=== PATIENT | female | born 1965 | race African-American/Black ===

== ENCOUNTER 2017-05-10 21:54 | Emergency (ER) | payer MEDICAID, OTHER ==
[~2017-05-10] VITALS: Ht 167.6 cm; Wt 73.0 kg
[2017-05-10 23:33] LABS: BASOPHILS % 0.4 % (0.0-2.0); EOSINOPHILS % 1.7 % (0.0-5.0); HEMATOCRIT. 41.3 % (36.0-48.0); HEMOGLOBIN. 14.1 g/dL (12.0-16.0); LYMPHOCYTES % 48.6 % (20.0-50.0); MEAN CORPUSCULAR HEMOGLOBIN 32.7 pg (28.0-32.0); MEAN CORPUSCULAR VOLUME 95.8 fL (81.0-99.0); MEAN PLATELET VOLUME 9.4 fl (7.4-10.4); NEUTROPHILS % 39.3 % (40.0-76.0); PLATELET 165 x1000/uL (130-400); RED BLOOD CELL COUNT 4.31 mill/uL (4.2-5.4); RED CELL DISTRIBUTION WIDTH 12.7 % (11.6-14.6)
[2017-05-10 23:43] LABS: CARBON DIOXIDE 25 mEq/L (21-32); CHLORIDE 107 mEq/L (98-107); ETHANOL BLOOD < 10 mg/dL
[2017-05-11 06:56] LABS: *AMPHETAMINES SCREEN URINE PRESUMTIVE POSITIVE (NEGATIVE); *BARBITURATES SCREEN URINE NEGATIVE (NEGATIVE); *BENZODIAZEPINES SCREEN URINE NEGATIVE (NEGATIVE); *COCAINE SCREEN URINE PRESUMTIVE POSITIVE (NEGATIVE); CANNABINOID URINE SCREEN NEGATIVE (NEGATIVE); METHADONE URINE SCREEN NEGATIVE (NEGATIVE); OPIATES URINE SCREEN NEGATIVE (NEGATIVE); PHENCYCLIDINE URINE SCREEN NEGATIVE (NEGATIVE)
[2017-05-11 12:42] VITALS: BP 110/60
== END 2017-05-11 12:54 | disposition home or self-care (01) ==
LOC: ER 22:54
DX: F32.9 Major depressive disorder, single episode, unspecified (principal); R45.851 Suicidal ideations; F43.21 Adjustment disorder with depressed mood; F31.9 Bipolar disorder, unspecified; F17.200 Nicotine dependence, unspecified, uncomplicated; F14.90 Cocaine use, unspecified, uncomplicated
CPT/HCPCS: 36415; 80053; 80305; 80307; 80329; 85025; 93005; 99285; G0482; Z7610

== ENCOUNTER 2018-10-05 02:25 | Inpatient (IN) | payer OTHER ==
[~2018-10-05] VITALS: Ht 165.1 cm; Wt 83.0 kg
[2018-10-05] MEDS ORDERED: ASPIRIN 81MG TABLET PO ONE (03:00)
[2018-10-05 03:16] LABS: CHLORIDE 103 mEq/L (98-107)
[2018-10-05 03:20] LABS: ETHANOL BLOOD < 10 mg/dL; INR 1.1; PARTIAL THROMBOPLASTIN TIME 35.4 sec (23.4-31.0)
[2018-10-05 03:21] LABS: BASOPHILS % 0.9 % (0.0-2.0); EOSINOPHILS % 1.9 % (0.0-5.0); HEMATOCRIT. 40.8 % (36.0-48.0); HEMOGLOBIN. 14.2 g/dL (12.0-16.0); LYMPHOCYTES % 41.7 % (20.0-50.0); MEAN CORPUSCULAR HEMOGLOBIN 33.3 pg (28.0-32.0); MEAN CORPUSCULAR VOLUME 96.2 fL (81.0-99.0); MEAN PLATELET VOLUME 10.1 fl (7.4-10.4); MONOCYTES % 14.1 % (2.0-8.0); NEUTROPHILS % 41.4 % (40.0-76.0); PLATELET 298 x1000/uL (130-400); RED BLOOD CELL COUNT 4.25 mill/uL (4.2-5.4); RED CELL DISTRIBUTION WIDTH 13.3 % (11.6-14.6)
[2018-10-05] MEDS: NITROGLYCERIN 0.4MG TABLET SL SL PRN ×4 (03:40→15:14)
[2018-10-05] MEDS ORDERED: ENOXAPARIN 100MG/ML SYR SUBCUT NR (04:30)
[2018-10-05 06:30] VITALS: BP 109/58
[2018-10-05 08:00] VITALS: BP 110/68
[2018-10-05 12:00] VITALS: BP 105/59
[2018-10-05] MEDS ORDERED: IPRATROPIUM/ALBUTEROL 0.5-3(2.5)MG/3ML NEB INH PRN (14:00)
[2018-10-05] MEDS ORDERED: NITROGLYCERIN 0.4MG TABLET SL SL PRN (14:00)
[2018-10-05] MEDS ORDERED: DOCUSATE SODIUM 100MG CAPSULE PO PRN (14:00)
[2018-10-05] MEDS ORDERED: CLONIDINE 0.1MG TABLET PO PRN (14:00)
[2018-10-05] MEDS ORDERED: ONDANSETRON HCL 4MG/2ML INJ IV PRN (14:00)
[2018-10-05 16:00] VITALS: BP 109/65
[2018-10-05] MEDS: HYDROCODONE/APAP 7.5/325MG 1 TAB TABLET PO PRN (16:46)
[2018-10-05 17:18] LABS: HEPATITIS B SURFACE ANTIGEN NEGATIVE
[2018-10-05 17:47] LABS: HEPATITIS A AB IGM NEGATIVE (NEGATIVE)
[2018-10-05 20:00] VITALS: BP 109/62
[2018-10-05] MEDS: DIPHENHYDRAMINE 50MG/ML VIAL IV PRN (23:25)
[2018-10-06] VITALS (7 sets, daily range): BP systolic 104–120; BP diastolic 53–78
[2018-10-06 05:34] LABS: *AMPHETAMINES SCREEN URINE PRESUMTIVE POSITIVE (NEGATIVE)
[2018-10-06 05:35] LABS: *BARBITURATES SCREEN URINE NEGATIVE (NEGATIVE); *BENZODIAZEPINES SCREEN URINE NEGATIVE (NEGATIVE); *COCAINE SCREEN URINE PRESUMTIVE POSITIVE (NEGATIVE); METHADONE URINE SCREEN NEGATIVE (NEGATIVE); OPIATES URINE SCREEN PRESUMTIVE POSITIVE (NEGATIVE); PHENCYCLIDINE URINE SCREEN NEGATIVE (NEGATIVE)
[2018-10-06 05:36] LABS: CANNABINOID URINE SCREEN NEGATIVE (NEGATIVE)
[2018-10-06 06:31] LABS: BASOPHILS % 0.9 % (0.0-2.0); EOSINOPHILS % 1.9 % (0.0-5.0); HEMATOCRIT. 40.3 % (36.0-48.0); HEMOGLOBIN. 13.9 g/dL (12.0-16.0); MEAN CORPUSCULAR HEMOGLOBIN 33.6 pg (28.0-32.0); MEAN CORPUSCULAR VOLUME 97.4 fL (81.0-99.0); MEAN PLATELET VOLUME 10.4 fl (7.4-10.4); NEUTROPHILS % 40.2 % (40.0-76.0); PLATELET 292 x1000/uL (130-400); RED BLOOD CELL COUNT 4.13 mill/uL (4.2-5.4); RED CELL DISTRIBUTION WIDTH 13.1 % (11.6-14.6)
[2018-10-06 06:43] LABS: CHLORIDE 104 mEq/L (98-107)
[2018-10-06 06:51] LABS: HDL CHOLESTEROL 51 mg/dL (40-59)
[2018-10-06 06:52] LABS: LDL CHOLESTEROL 82 mg/dL (5-100)
[2018-10-06 06:54] LABS: T4 FREE 1.21 ng/dL (0.76-1.46)
[2018-10-06] MEDS: HYDROCODONE/APAP 7.5/325MG 1 TAB TABLET PO PRN (11:21)
[2018-10-06] MEDS: DILTIAZEM HCL 30MG TABLET PO SCH (21:39)
[2018-10-06] MEDS: DIPHENHYDRAMINE 50MG/ML VIAL IV PRN (22:24)
[2018-10-07 05:09] VITALS: BP 129/66
[2018-10-07] MEDS: DILTIAZEM HCL 30MG TABLET PO SCH ×3 (06:22→22:00)
[2018-10-07 08:00] VITALS: BP 105/64
[2018-10-07 12:00] VITALS: BP 114/80
[2018-10-07 16:00] VITALS: BP 118/73
[2018-10-07] MEDS: DIPHENHYDRAMINE 50MG/ML VIAL IV PRN (18:33)
[2018-10-07 20:00] VITALS: BP 106/70
[2018-10-08 03:55] VITALS: BP 95/57
[2018-10-08] MEDS: DILTIAZEM HCL 30MG TABLET PO SCH ×3 (06:00→21:01)
[2018-10-08 08:00] VITALS: BP 117/72
[2018-10-08] MEDS: DIPHENHYDRAMINE 50MG/ML VIAL IV PRN ×2 (08:18→18:59)
[2018-10-08 12:00] VITALS: BP 108/66
[2018-10-08 16:00] VITALS: BP 114/67
[2018-10-08 20:00] VITALS: BP 128/81
[2018-10-09] VITALS (7 sets, daily range): BP systolic 94–112; BP diastolic 59–79
[2018-10-09] MEDS: DIPHENHYDRAMINE 50MG/ML VIAL IV PRN ×3 (04:13→19:59)
[2018-10-09] MEDS: DILTIAZEM HCL 30MG TABLET PO SCH ×3 (05:42→21:27)
[2018-10-09] MEDS: ACETAMINOPHEN 325MG TABLET PO PRN (08:53)
[2018-10-09] MEDS: HYDROCODONE/APAP 7.5/325MG 1 TAB TABLET PO PRN (19:11)
[2018-10-09 20:01] LABS: HCG SCREEN NEGATIVE
[2018-10-10] VITALS: BP 93/60
[2018-10-10 02:03] LABS: CLARITY URINE CLEAR (CLEAR); COLOR URINE YELLOW (YELLOW); KETONES URINE NEGATIVE (NEGATIVE); LEUKOCYTE ESTERASE URINE 2+ (NEGATIVE); NITRITE URINE NEGATIVE (NEGATIVE); OCCULT BLOOD URINE NEGATIVE (NEGATIVE); PROTEIN URINE NEGATIVE (NEGATIVE); SPECIFIC GRAVITY URINE 1.025 (1.005-1.030)
[2018-10-10 04:00] VITALS: BP 105/66
[2018-10-10] MEDS: DILTIAZEM HCL 30MG TABLET PO SCH ×3 (05:19→22:00)
[2018-10-10] MEDS: DIPHENHYDRAMINE 50MG/ML VIAL IV PRN ×2 (06:34→16:42)
[2018-10-10 07:47] VITALS: BP 110/74
[2018-10-10] MEDS: HYDROCODONE/APAP 7.5/325MG 1 TAB TABLET PO PRN (09:35)
[2018-10-10 12:00] VITALS: BP 113/83
[2018-10-10 16:00] VITALS: BP 103/66
[2018-10-10 20:00] VITALS: BP 111/79
[2018-10-11] VITALS: BP 108/67
[2018-10-11] MEDS: DIPHENHYDRAMINE 50MG/ML VIAL IV PRN ×3 (01:47→19:40)
[2018-10-11 04:00] VITALS: BP 93/62
[2018-10-11] MEDS: DILTIAZEM HCL 30MG TABLET PO SCH ×3 (05:04→22:00)
[2018-10-11 08:00] VITALS: BP 107/64
[2018-10-11 16:00] VITALS: BP 96/54
[2018-10-11 20:00] VITALS: BP 101/58
[2018-10-12] VITALS (7 sets, daily range): BP systolic 93–113; BP diastolic 52–79
[2018-10-12] MEDS: ACETAMINOPHEN 325MG TABLET PO PRN ×2 (03:04→16:29)
[2018-10-12] MEDS: DIPHENHYDRAMINE 50MG/ML VIAL IV PRN ×2 (05:23→14:36)
[2018-10-12] MEDS: DILTIAZEM HCL 30MG TABLET PO SCH ×3 (05:25→21:25)
[2018-10-12] MEDS: MAGNESIUM/ALUMINUM HYDROXIDE/SIMETHICONE 30ML UDC PO PRN (10:54)
[2018-10-13] VITALS (7 sets, daily range): BP systolic 95–111; BP diastolic 54–71
[2018-10-13] MEDS: DILTIAZEM HCL 30MG TABLET PO SCH ×3 (05:15→22:00)
[2018-10-13] MEDS: MAGNESIUM/ALUMINUM HYDROXIDE/SIMETHICONE 30ML UDC PO PRN (05:39)
[2018-10-13] MEDS: DIPHENHYDRAMINE 50MG/ML VIAL IV PRN ×3 (08:52→18:07)
[2018-10-13] MEDS: ACETAMINOPHEN 325MG TABLET PO PRN (15:15)
[2018-10-14] VITALS (7 sets, daily range): BP systolic 95–111; BP diastolic 50–73
[2018-10-14] MEDS: DIPHENHYDRAMINE 50MG/ML VIAL IV PRN ×3 (04:58→21:24)
[2018-10-14] MEDS: MAGNESIUM/ALUMINUM HYDROXIDE/SIMETHICONE 30ML UDC PO PRN (05:59)
[2018-10-14] MEDS: DILTIAZEM HCL 30MG TABLET PO SCH ×3 (06:00→21:30)
[2018-10-15 04:48] VITALS: BP 97/54
[2018-10-15] MEDS: DILTIAZEM HCL 30MG TABLET PO SCH ×2 (05:55→14:00)
[2018-10-15] MEDS: MAGNESIUM/ALUMINUM HYDROXIDE/SIMETHICONE 30ML UDC PO PRN (06:16)
[2018-10-15] MEDS: DIPHENHYDRAMINE 50MG/ML VIAL IV PRN (06:20)
[2018-10-15 10:39] VITALS: BP 97/52
== END 2018-10-15 16:45 | DRG 816 ==
LOC: ER 02:25 → 5WST 04:19 → EDBEDREQ 04:24 → EDBEDREQTM 04:24 → ENRESERV 04:54 → 5WST 12:29
PROVIDERS: ADMIT Internal Medicine; ATTEND Internal Medicine
DX: T40.5X1A Poisoning by cocaine, accidental (unintentional), initial encounter (principal); R45.851 Suicidal ideations; K70.30 Alcoholic cirrhosis of liver without ascites; I25.110 Atherosclerotic heart disease of native coronary artery with unstable angina pectoris; F14.988 Cocaine use, unspecified with other cocaine-induced disorder; F15.988 Other stimulant use, unspecified with other stimulant-induced disorder; F17.210 Nicotine dependence, cigarettes, uncomplicated; I10 Essential (primary) hypertension; Z72.89 Other problems related to lifestyle; Y92.89 Other specified places as the place of occurrence of the external cause
CPT/HCPCS: 36415; 71045; 76700; 80061; 80305; 82553; 83880; 84439; 84443; 84481; 84484; 84703; 86705; 86709; 86803; 87340; 93005; 93306; 93970; 94640; 96372; 99285; C1893; G0482; J1200; J1650; J7620

== ENCOUNTER 2021-03-27 08:40 | Emergency (ER) | payer OTHER ==
[~2021-03-27] VITALS: Ht 170.2 cm; Wt 113.0 kg
[2021-03-27] MEDS ORDERED: MORPHINE SULFATE 4 MG/ML CPJ (NOT FOR IM USE) IV ONE (09:15)
[2021-03-27 09:35] LABS: BASOPHILS % 0.6 % (0.0-2.0); EOSINOPHILS % 0.3 % (0.0-5.0); HEMATOCRIT. 44.1 % (36.0-48.0); HEMOGLOBIN. 15.2 g/dL (12.0-16.0); MEAN CORPUSCULAR HEMOGLOBIN 30.9 pg (28.0-32.0); MEAN CORPUSCULAR VOLUME 89.7 fL (81.0-99.0); MEAN PLATELET VOLUME 8.7 fl (7.4-10.4); MONOCYTES % 10.8 % (2.0-8.0); NEUTROPHILS % 68.3 % (40.0-76.0); PLATELET 287 x1000/uL (130-400); RED BLOOD CELL COUNT 4.92 mill/uL (4.2-5.4); RED CELL DISTRIBUTION WIDTH 13.1 % (11.6-14.6)
[2021-03-27 09:40] LABS: CHLORIDE 99 mEq/L (98-107)
[2021-03-27 15:39] VITALS: BP 113/69
== END 2021-03-27 15:41 | disposition short-term general hospital (02) ==
LOC: ER 08:40
DX: R07.89 Other chest pain (principal); R06.02 Shortness of breath; Z20.822 Contact with and (suspected) exposure to COVID-19; J45.909 Unspecified asthma, uncomplicated; I10 Essential (primary) hypertension
CPT/HCPCS: 36415; 71045; 80053; 83880; 84484; 85025; 93005; 96374; 99285; C9803; J2270; U0003; U0005

== ENCOUNTER 2021-09-07 06:31 | Emergency (ER) | payer OTHER ==
[~2021-09-07] VITALS: Ht 165.1 cm; Wt 73.0 kg
[2021-09-07] MEDS ORDERED: MORPHINE SULFATE 4 MG/ML CPJ (NOT FOR IM USE) IV STA (07:03)
[2021-09-07 11:19] LABS: BASOPHILS % 1.1 % (0.0-2.0); EOSINOPHILS % 3.4 % (0.0-5.0); HEMATOCRIT. 39.3 % (36.0-48.0); HEMOGLOBIN. 13.6 g/dL (12.0-16.0); LYMPHOCYTES % 44.8 % (20.0-50.0); MEAN CORPUSCULAR VOLUME 92.5 fL (81.0-99.0); MEAN PLATELET VOLUME 9.2 fl (7.4-10.4); MONOCYTES % 10.6 % (2.0-8.0); NEUTROPHILS % 40.1 % (40.0-76.0); PLATELET 247 x1000/uL (130-400); RED BLOOD CELL COUNT 4.25 mill/uL (4.2-5.4); RED CELL DISTRIBUTION WIDTH 13.5 % (11.6-14.6)
[2021-09-07 11:28] LABS: CHLORIDE 107 mEq/L (98-107)
[2021-09-07 11:33] LABS: ETHANOL BLOOD < 10 mg/dL
[2021-09-07] MEDS ORDERED: QUETIAPINE FUMARATE 25MG TABLET PO SCH (22:00)
[2021-09-08] MEDS: QUETIAPINE FUMARATE 50MG TABLET PO SCH ×2 (00:34→21:15)
[2021-09-08] MEDS ORDERED: QUETIAPINE FUMARATE 25MG TABLET PO SCH (09:00)
[2021-09-08] MEDS ORDERED: ACETAMINOPHEN 325MG TABLET PO ONE (19:30)
[2021-09-09] MEDS: QUETIAPINE FUMARATE 50MG TABLET PO SCH ×2 (09:46→21:32)
[2021-09-09] MEDS ORDERED: ACETAMINOPHEN 325MG TABLET PO ONE (16:45)
[2021-09-10 09:20] LABS: PHENCYCLIDINE URINE SCREEN NEGATIVE (NEGATIVE)
[2021-09-10 09:21] LABS: *AMPHETAMINES SCREEN URINE NEGATIVE (NEGATIVE); *BARBITURATES SCREEN URINE NEGATIVE (NEGATIVE); *BENZODIAZEPINES SCREEN URINE PRESUMTIVE POSITIVE (NEGATIVE); *COCAINE SCREEN URINE PRESUMTIVE POSITIVE (NEGATIVE); CANNABINOID URINE SCREEN NEGATIVE (NEGATIVE)
[2021-09-10 09:22] LABS: METHADONE URINE SCREEN NEGATIVE (NEGATIVE); OPIATES URINE SCREEN NEGATIVE (NEGATIVE)
[2021-09-10] MEDS: QUETIAPINE FUMARATE 50MG TABLET PO SCH (10:28)
[2021-09-10 11:18] LABS: CLARITY URINE CLEAR (CLEAR); COLOR URINE YELLOW (YELLOW); KETONES URINE NEGATIVE (NEGATIVE); LEUKOCYTE ESTERASE URINE NEGATIVE (NEGATIVE); NITRITE URINE NEGATIVE (NEGATIVE); OCCULT BLOOD URINE NEGATIVE (NEGATIVE); PROTEIN URINE NEGATIVE (NEGATIVE); SPECIFIC GRAVITY URINE 1.009 (1.005-1.030)
[2021-09-10 16:07] VITALS: BP 115/78
== END 2021-09-10 16:34 ==
LOC: ER 06:31 → CANBEDREQ 12:41 → ER 09-10 16:34
DX: R07.89 Other chest pain (principal); R45.851 Suicidal ideations; I10 Essential (primary) hypertension; J44.9 Chronic obstructive pulmonary disease, unspecified; E11.9 Type 2 diabetes mellitus without complications; F17.210 Nicotine dependence, cigarettes, uncomplicated; Z20.822 Contact with and (suspected) exposure to COVID-19; Z75.1 Person awaiting admission to adequate facility elsewhere
CPT/HCPCS: 36415; 71045; 80053; 80305; 80320; 81003; 82962; 83880; 84484; 85025; 87426; 93005; 96374; 99285; C9803; J2270; U0003; U0005; Z7610; G0480

== ENCOUNTER 2021-12-28 00:49 | Emergency (ER) | payer OTHER ==
[~2021-12-28] VITALS: Ht 162.6 cm; Wt 98.0 kg
[2021-12-28 03:54] LABS: BASOPHILS % 0.8 % (0.0-2.0); EOSINOPHILS % 2.2 % (0.0-5.0); HEMATOCRIT. 40.4 % (36.0-48.0); HEMOGLOBIN. 13.9 g/dL (12.0-16.0); MEAN CORPUSCULAR HEMOGLOBIN 32.4 pg (28.0-32.0); MEAN CORPUSCULAR VOLUME 93.9 fL (81.0-99.0); MEAN PLATELET VOLUME 9.1 fl (7.4-10.4); MONOCYTES % 8.6 % (2.0-8.0); NEUTROPHILS % 47.4 % (40.0-76.0); PLATELET 171 x1000/uL (130-400); RED CELL DISTRIBUTION WIDTH 13.7 % (11.6-14.6)
[2021-12-28 03:58] LABS: CHLORIDE 100 mEq/L (98-107)
[2021-12-28 04:02] LABS: ETHANOL BLOOD < 10 mg/dL
[2021-12-28] MEDS ORDERED: FLUOXETINE HCL 20MG CAPSULE PO SCH (10:00)
[2021-12-28 14:28] LABS: *AMPHETAMINES SCREEN URINE PRESUMTIVE POSITIVE (NEGATIVE); *BARBITURATES SCREEN URINE NEGATIVE (NEGATIVE); *BENZODIAZEPINES SCREEN URINE NEGATIVE (NEGATIVE); *COCAINE SCREEN URINE NEGATIVE (NEGATIVE); METHADONE URINE SCREEN NEGATIVE (NEGATIVE); OPIATES URINE SCREEN NEGATIVE (NEGATIVE); PHENCYCLIDINE URINE SCREEN NEGATIVE (NEGATIVE)
[2021-12-28 14:29] LABS: CANNABINOID URINE SCREEN NEGATIVE (NEGATIVE)
[2021-12-28] MEDS ORDERED: QUETIAPINE FUMARATE 50MG TABLET PO SCH (21:00)
[2021-12-28 23:42] VITALS: BP 109/63
== END 2021-12-29 00:04 ==
LOC: ER 00:49
DX: R07.89 Other chest pain (principal); F32.A Depression, unspecified; R45.851 Suicidal ideations; J45.909 Unspecified asthma, uncomplicated; E11.9 Type 2 diabetes mellitus without complications; I10 Essential (primary) hypertension; Z20.822 Contact with and (suspected) exposure to COVID-19
CPT/HCPCS: 36415; 71045; 80053; 80305; 80307; 80320; 80329; 82962; 83880; 84484; 85025; 85379; 87426; 93005; 99285; C9803; U0003; U0005; G0480

== ENCOUNTER 2022-11-22 23:33 | Emergency (ER) | payer OTHER ==
[~2022-11-22] VITALS: Ht 165.1 cm; Wt 87.0 kg
[2022-11-23] MEDS ORDERED: MORPHINE SULFATE 4 MG/ML CPJ (NOT FOR IM USE) IV STA (00:29)
[2022-11-23] MEDS ORDERED: FAMOTIDINE 20MG/2ML VIAL IV STA (00:29)
[2022-11-23] MEDS ORDERED: ONDANSETRON HCL 4MG/2ML INJ IV STA (00:29)
[2022-11-23] MEDS ORDERED: SODIUM CHLORIDE 0.9% 1,000 ML IV ONE (00:30)
[2022-11-23 02:44] LABS: BASOPHILS % 0.9 % (0.0-2.0); EOSINOPHILS % 1.1 % (0.0-5.0); HEMATOCRIT. 39.8 % (36.0-48.0); HEMOGLOBIN. 13.5 g/dL (12.0-16.0); LYMPHOCYTES % 20.5 % (20.0-50.0); MEAN CORPUSCULAR HEMOGLOBIN 32.3 pg (28.0-32.0); MEAN CORPUSCULAR VOLUME 95.4 fL (81.0-99.0); MEAN PLATELET VOLUME 9.6 fl (7.4-10.4); MONOCYTES % 5.7 % (2.0-8.0); NEUTROPHILS % 71.8 % (40.0-76.0); PLATELET 279 x1000/uL (130-400); RED BLOOD CELL COUNT 4.18 mill/uL (4.2-5.4); RED CELL DISTRIBUTION WIDTH 13.2 % (11.6-14.6)
[2022-11-23 02:52] LABS: CHLORIDE 109 mEq/L (98-107)
[2022-11-23] MEDS ORDERED: FAMOTIDINE 20MG/2ML VIAL IV NR (03:00)
[2022-11-23] MEDS ORDERED: MORPHINE SULFATE 4 MG/ML CPJ (NOT FOR IM USE) IV NR (03:00)
[2022-11-23] MEDS ORDERED: ONDANSETRON HCL 4MG/2ML INJ IV NR (03:00)
[2022-11-23 08:04] VITALS: BP 96/66
== END 2022-11-23 08:32 | disposition short-term general hospital (02) ==
LOC: ER 23:44
DX: R10.84 Generalized abdominal pain (principal); U07.1 COVID-19; R11.2 Nausea with vomiting, unspecified; F20.9 Schizophrenia, unspecified; F32.A Depression, unspecified; Z90.49 Acquired absence of other specified parts of digestive tract
CPT/HCPCS: 36415; 71045; 74176; 80053; 83605; 83690; 85025; 87426; 93005; 96361; 96374; 96375; 99285; C9803; J2270; J2405; J3490; J7030

== ENCOUNTER 2023-05-03 02:00 | Emergency (ER) | payer OTHER ==
[~2023-05-03] VITALS: Ht 165.1 cm; Wt 113.0 kg
[2023-05-03] MEDS ORDERED: METHYLPREDNISOLONE SOD SUCC 125 MG/2 ML VIAL IV STA (02:14)
[2023-05-03] MEDS ORDERED: IPRATROPIUM BROMIDE (0.02%) 0.5MG/2.5ML NEB HHN STA (02:14)
[2023-05-03] MEDS ORDERED: NITROGLYCERIN 0.4MG TABLET SL SL PRN (02:15)
[2023-05-03 02:47] LABS: EOSINOPHILS % 0.3 % (0.0-5.0); HEMATOCRIT. 42.4 % (36.0-48.0); HEMOGLOBIN. 14.6 g/dL (12.0-16.0); LYMPHOCYTES % 17.2 % (20.0-50.0); MEAN CORPUSCULAR HEMOGLOBIN 31.6 pg (28.0-32.0); MEAN CORPUSCULAR VOLUME 91.7 fL (81.0-99.0); MEAN PLATELET VOLUME 10.6 fl (7.4-10.4); MONOCYTES % 7.4 % (2.0-8.0); NEUTROPHILS % 74.1 % (40.0-76.0); PLATELET 213 x1000/uL (130-400); RED BLOOD CELL COUNT 4.62 mill/uL (4.2-5.4); RED CELL DISTRIBUTION WIDTH 13.3 % (11.6-14.6)
[2023-05-03 02:52] LABS: CHLORIDE 102 mEq/L (98-107)
[2023-05-03] MEDS: ALBUTEROL (0.083%) 2.5MG/3ML NEB HHN SCH ×3 (04:09→05:31)
[2023-05-03] MEDS ORDERED: ALBU6.7H3 INH (05:28)
[2023-05-03] MEDS ORDERED: NITR0.4T49 SL (05:28)
[2023-05-03] MEDS ORDERED: P20 MT (05:28)
[2023-05-03] MEDS: QUETIAPINE FUMARATE 50MG TABLET PO SCH ×3 (11:12→21:00)
[2023-05-03] MEDS ORDERED: ACETAMINOPHEN 500MG TABLET PO ONE (11:30)
[2023-05-03 15:37] LABS: CLARITY URINE CLEAR (CLEAR); COLOR URINE YELLOW (YELLOW); KETONES URINE 1+ (NEGATIVE); LEUKOCYTE ESTERASE URINE TRACE (NEGATIVE); NITRITE URINE NEGATIVE (NEGATIVE); OCCULT BLOOD URINE NEGATIVE (NEGATIVE); PROTEIN URINE NEGATIVE (NEGATIVE); SPECIFIC GRAVITY URINE 1.033 (1.005-1.030); UROBILINOGEN URINE 0.2 E.U./dL (0.2-1.0)
[2023-05-03 15:48] LABS: *AMPHETAMINES SCREEN URINE NEGATIVE (NEGATIVE); *BARBITURATES SCREEN URINE NEGATIVE (NEGATIVE); *BENZODIAZEPINES SCREEN URINE NEGATIVE (NEGATIVE); *COCAINE SCREEN URINE PRESUMTIVE POSITIVE (NEGATIVE); CANNABINOID URINE SCREEN NEGATIVE (NEGATIVE); METHADONE URINE SCREEN NEGATIVE (NEGATIVE); OPIATES URINE SCREEN NEGATIVE (NEGATIVE); PHENCYCLIDINE URINE SCREEN NEGATIVE (NEGATIVE)
[2023-05-03 16:35] LABS: CHLORIDE 92 mEq/L (98-107)
[2023-05-03] MEDS ORDERED: SODIUM CHLORIDE 0.9% 1,000 ML IV ONE (18:30)
[2023-05-03] MEDS ORDERED: INSULIN REGULAR (HUMULIN R) 300UNITS/3ML VIAL SUBCUT ONE (18:30)
[2023-05-04 02:15] VITALS: BP 136/61
[2023-05-04] MEDS ORDERED: INSULIN REGULAR (HUMULIN R) 300UNITS/3ML VIAL SUBCUT ONE (02:30)
== END 2023-05-04 03:20 | disposition short-term general hospital (02) ==
LOC: ER 02:16 → CANBEDREQ 05-05 19:51
DX: J44.1 Chronic obstructive pulmonary disease with (acute) exacerbation (principal); F32.9 Major depressive disorder, single episode, unspecified; R45.851 Suicidal ideations; I20.8 Other forms of angina pectoris; J44.9 Chronic obstructive pulmonary disease, unspecified; E11.9 Type 2 diabetes mellitus without complications; I10 Essential (primary) hypertension; Z90.49 Acquired absence of other specified parts of digestive tract; F17.200 Nicotine dependence, unspecified, uncomplicated; Z20.822 Contact with and (suspected) exposure to COVID-19
CPT/HCPCS: 36415; 71045; 72170; 73562; 80053; 80305; 81003; 81025; 82962; 83880; 84484; 85025; 87426; 93005; 94640; 96372; 96374; 99285; C9803; J1815; J2930; J7030; Z7610

== ENCOUNTER 2025-08-23 09:57 | Emergency (ER) | payer MEDICAID ==
[~2025-08-23] VITALS: Ht 167.6 cm; Wt 82.0 kg
[~2025-08-23 09:57] MED LIST: ALBU18HF2 IH; ALBU6.7H3 INH; AMLO10TA80; ASPI-1406 PO; ATOR40TA70; LANTUSUD SUBCUT; METF-416; NITR0.4T49 SL; QUET50TA PO
[2025-08-23 10:00] VITALS: O2SAT 97
[2025-08-23] MEDS ORDERED: CLONIDINE 0.2MG TABLET PO ONE (10:45)
[2025-08-23 11:40] LABS: BASOPHILS % 1.6 % (0.0-2.0); EOSINOPHILS % 0.3 % (0.0-5.0); HEMATOCRIT. 42.2 % (36.0-48.0); HEMOGLOBIN. 14.3 g/dL (12.0-16.0); LYMPHOCYTES % 18.7 % (20.0-50.0); MEAN PLATELET VOLUME 9.4 fl (7.4-10.4); MONOCYTES % 6.7 % (2.0-8.0); NEUTROPHILS % 72.7 % (40.0-76.0); PLATELET 308 x1000/uL (130-400); RED BLOOD CELL COUNT 4.45 mill/uL (4.2-5.4); RED CELL DISTRIBUTION WIDTH 13.9 % (11.6-14.6)
[2025-08-23] MEDS: CLONIDINE 0.1MG TABLET PO SCH (11:44)
[2025-08-23] MEDS: TRAMADOL 50MG TABLET PO ONE (11:44)
[2025-08-23 11:55] LABS: CREATININE 0.6 mg/dL (0.6-1.0); UREA NITROGEN BLOOD 5 mg/dL (9-23)
[2025-08-23 11:56] LABS: TROPONIN I HIGH SENSITIVITY < 4 ng/L (3.0-34)
[2025-08-23 14:12] LABS: TROPONIN I HIGH SENSITIVITY < 4 ng/L (3.0-34)
[2025-08-23] MEDS ORDERED: TRAM-534 MT (14:37)
[2025-08-23 16:51] LABS: HCG SCREEN NEGATIVE
[2025-08-23] MEDS ORDERED: ACETAMINOPHEN 325MG TABLET PO ONE (19:00)
[2025-08-23] MEDS: ACETAMINOPHEN 325MG TABLET PO SCH (20:59)
[2025-08-24 18:23] LABS: CLARITY URINE CLOUDY (CLEAR); COLOR URINE DARK YELLOW (YELLOW); GLUCOSE URINE NEGATIVE (NEGATIVE); KETONES URINE TRACE (NEGATIVE); LEUKOCYTE ESTERASE URINE 1+ (NEGATIVE); NITRITE URINE NEGATIVE (NEGATIVE); OCCULT BLOOD URINE NEGATIVE (NEGATIVE); PH URINE 7.0 (4.5-8.0); PROTEIN URINE NEGATIVE (NEGATIVE); SPECIFIC GRAVITY URINE 1.022 (1.005-1.030); UROBILINOGEN URINE 4.0 E.U./dL (0.2-1.0)
[2025-08-24 18:40] LABS: *AMPHETAMINES SCREEN URINE NEGATIVE (NEGATIVE); *BARBITURATES SCREEN URINE NEGATIVE (NEGATIVE); *BENZODIAZEPINES SCREEN URINE NEGATIVE (NEGATIVE); *COCAINE SCREEN URINE PRESUMPTIVE POSITIVE (NEGATIVE); CANNABINOID URINE SCREEN NEGATIVE (NEGATIVE); ECSTASY MDMA SCREEN URINE NEGATIVE (NEGATIVE); METHADONE URINE SCREEN NEGATIVE (NEGATIVE); OPIATES URINE SCREEN NEGATIVE (NEGATIVE); PHENCYCLIDINE URINE SCREEN NEGATIVE (NEGATIVE)
[2025-08-24 19:15] LABS: BACTERIA URINE 1+; RBC URINE 0-2 /hpf (0-2); SQUAMOUS EPITHELIAL CELL URINE 1+ /lpf (RARE/1+)
[2025-08-24] MEDS: NITROFURANTOIN 100MG M/M CAPSULE PO STA (22:50)
[2025-08-24] MEDS: ACETAMINOPHEN 325MG TABLET PO ONE (22:50)
[2025-08-24] MEDS: QUETIAPINE FUMARATE 50MG TABLET PO SCH (22:51)
[2025-08-25 00:37] VITALS: BP 109/74; PULSE 78; RESP 14; TEMP 36.9; O2SAT 95
== END 2025-08-25 00:51 ==
LOC: ER 09:57 → CANBEDREQ 14:38 → ER 08-25 00:51
DX: R45.851 Suicidal ideations (principal); R07.89 Other chest pain; U07.1 COVID-19; F25.9 Schizoaffective disorder, unspecified; F31.9 Bipolar disorder, unspecified; I10 Essential (primary) hypertension; J44.9 Chronic obstructive pulmonary disease, unspecified; Z59.00 Homelessness unspecified; Z79.82 Long term (current) use of aspirin; Z79.899 Other long term (current) drug therapy
CPT/HCPCS: 80305; 80048; 81003; 80307; 80329; 84703; 85025; 84484; 36415; 71045; 93005; 99285; 87426; 87086; Z7610

== ENCOUNTER 2025-10-08 16:20 | Emergency (ER) | payer MEDICAID ==
[~2025-10-08] VITALS: Ht 165.1 cm; Wt 100.0 kg
[~2025-10-08 16:20] MED LIST changes: +TRAM-534 MT
[2025-10-08 16:42] VITALS: O2SAT 97
[2025-10-08 19:42] LABS: BASOPHILS % 0.7 % (0.0-2.0); EOSINOPHILS % 4.3 % (0.0-5.0); HEMATOCRIT. 40.5 % (36.0-48.0); HEMOGLOBIN. 13.2 g/dL (12.0-16.0); LYMPHOCYTES % 42.3 % (20.0-50.0); MEAN PLATELET VOLUME 10.5 fl (7.4-10.4); MONOCYTES % 5.6 % (2.0-8.0); NEUTROPHILS % 47.1 % (40.0-76.0); PLATELET 227 x1000/uL (130-400); RED BLOOD CELL COUNT 4.20 mill/uL (4.2-5.4); RED CELL DISTRIBUTION WIDTH 13.4 % (11.6-14.6)
[2025-10-08 19:54] LABS: CREATININE 0.6 mg/dL (0.6-1.0); UREA NITROGEN BLOOD 12 mg/dL (9-23)
[2025-10-08 19:55] LABS: ETHANOL BLOOD < 10 mg/dL (<10)
[2025-10-08] MEDS: QUETIAPINE FUMARATE 50MG TABLET PO SCH (21:21)
[2025-10-09 01:09] LABS: CLARITY URINE CLEAR (CLEAR); COLOR URINE YELLOW (YELLOW); GLUCOSE URINE NEGATIVE (NEGATIVE); KETONES URINE NEGATIVE (NEGATIVE); LEUKOCYTE ESTERASE URINE NEGATIVE (NEGATIVE); NITRITE URINE NEGATIVE (NEGATIVE); OCCULT BLOOD URINE NEGATIVE (NEGATIVE); PH URINE 6.0 (4.5-8.0); PROTEIN URINE NEGATIVE (NEGATIVE); SPECIFIC GRAVITY URINE 1.021 (1.005-1.030); UROBILINOGEN URINE 1.0 E.U./dL (0.2-1.0)
[2025-10-09 01:16] LABS: *AMPHETAMINES SCREEN URINE NEGATIVE (NEGATIVE); *BARBITURATES SCREEN URINE NEGATIVE (NEGATIVE); *BENZODIAZEPINES SCREEN URINE NEGATIVE (NEGATIVE); *COCAINE SCREEN URINE NEGATIVE (NEGATIVE)
[2025-10-09 01:17] LABS: CANNABINOID URINE SCREEN NEGATIVE (NEGATIVE); ECSTASY MDMA SCREEN URINE NEGATIVE (NEGATIVE); METHADONE URINE SCREEN NEGATIVE (NEGATIVE); OPIATES URINE SCREEN NEGATIVE (NEGATIVE); PHENCYCLIDINE URINE SCREEN NEGATIVE (NEGATIVE)
[2025-10-09] MEDS: POTASSIUM CHLORIDE 20MEQ/PACKET PO NR (02:30)
[2025-10-09] MEDS: ACETAMINOPHEN 325MG TABLET PO ONE (18:15)
[2025-10-09 23:21] VITALS: BP 115/81; PULSE 71; RESP 16; TEMP 36.4; O2SAT 97
== END 2025-10-09 23:35 ==
LOC: ER 16:20
DX: R45.851 Suicidal ideations (principal); F20.9 Schizophrenia, unspecified; F31.9 Bipolar disorder, unspecified; I10 Essential (primary) hypertension; J44.9 Chronic obstructive pulmonary disease, unspecified; Z79.899 Other long term (current) drug therapy; Z20.822 Contact with and (suspected) exposure to COVID-19
CPT/HCPCS: 80305; 80048; 81003; 80307; 80329; 80320; 85025; 36415; 93005; 99285; 87426; Z7610 ×2; G0480